=== PATIENT | male | born 1995 | race Caucasian/White ===

== ENCOUNTER 2019-05-28 17:47 | Emergency (ER) | payer BC, SELFPAY ==
[2019-05-28 18:20] VITALS: BP 115/63; PULSE 92; RESP 20; TEMP 37.8; O2SAT 98
--- NOTE | 2019-05-28 18:59 | ED.GENADULT ---
HPI - General Adult General Chief complaint: Upper Respiratory Infection Stated complaint: fischer throat fever cough Time Seen by Provider: 05/28/19 19:00 Source: patient and RN notes reviewed Mode of arrival: ambulatory Limitations: no limitations History of Present Illness HPI narrative: 24-year-old male presents with complaints of sore throat, fever, headache (not the worst of his life), body aches, and cough for the past 2 days. Ibuprofen (last @1800 today) with little relief. Tactile fevers, sweats, and chills. No drooling, neck or throat swelling. Pain is bilateral. Hurts to swallow. Exacerbation factors consist of eating and drinking. No rhinorrhea. Nasal congestion. No voice change. No nausea, vomiting, or abdominal pain. Tolerating liquids well. Denies chills, dyspnea, difficulty swallowing, jaw pain, dental pain, facial pain, foreign body sensation, and rash. Remains active. Some parts of this dictation were generated by voice recognition software and may contain typographical and/or grammatical inaccuracies. Related Data Allergies Allergy/AdvReac Type Severity Reaction Status Date / Time No Known Allergies Allergy Verified 05/28/19 19:08 Review of Systems Review of Systems: Narrative: CONSTITUTIONAL: Complains of tactile fever, chills, sweats. EYES: Denies visual changes, redness, discharge. ENT: Denies rhinorrhea, otalgia. Complains of sore throat, congestion. CARDIOVASCULAR: Denies chest pain, palpitations, edema. RESPIRATORY: Denies dyspnea, wheezing. Complains of cough. GASTROINTESTINAL: Denies abdominal pain, nausea, vomiting, diarrhea. GENITOURINARY: Denies dysuria, hematuria, abnormal discharge. SKIN: Denies rash or itching. MUSCULOSKELETAL: Denies acute back pain, joint pain. Complains of myalgia. NEUROLOGIC: Denies numbness or focal weakness. PSYCHIATRIC: Denies anxiety or depression. All systems reviewed & are unremarkable except as noted in HPI and below. [facility] Past Medical History Medical History (Updated 06/04/19 @ 15:05 by FILI Dominguez) No significant past medical history Social History Social History Smoking status: Never smoker Alcohol intake: current Comments At time of signature, agree with nurse past medical, surgical, social, and family history. There is no relevant family history pertinent to the presenting complaint. Exam Narrative: Exam Narrative: GENERAL: This is a well-nourished, well-developed patient, in no apparent distress. Speaks in full sentences without deficits and ambulates with steady gait without dyspnea. HEAD: normocephalic, atraumatic. EYES: PERRL. Sclera clear/white. Vision is grossly intact. EARS: External ears normal, auditory canals clear and without drainage, TMs normal without perforation. Hearing grossly intact. NOSE: External nose normal with no obvious nasal discharge, nares with mild redness and enlarge turbinates, no rhinorrhea. Mouth: moist mucous membranes. THROAT: Mucous membranes moist, posterior pharynx with moderate erythema, and moderate exudate to bilateral tonsil, +2 tonsils, no drainage, no concern for Peritonsillar abscess. No drooling, trismus, or neck swelling. NECK: Neck supple, non-tender without lymphadenopathy, masses or thyromegaly. CARDIOVASCULAR: Regular rate and rhythm without murmurs, gallops, or rubs. RESPIRATORY: Clear to auscultation. Breath sounds equal bilaterally. No wheezes, rales, or rhonchi. GASTROINTESTINAL: Abdomen soft, non-tender, nondistended. Bowel sounds are active. No hepato-splenomegaly, or palpable masses. No guarding. SKIN: warm, intact with no suspicious lesions or rash, good texture and turgor. NEURO: awake, alert, and oriented to person, place and time. There were no obvious focal neurologic abnormalities. EXTREMITIES: No clubbing, cyanosis, or edema. Niurka Coma Scale Eye Opening: Spontaneous 4 Niurka Coma Scale Motor: Obeys Comm
== END 2019-05-28 19:20 | disposition home or self-care (01) ==
PROVIDERS: Emergency Provider Nurse Practitioner Family; PCP Family Medicine
DX: J02.9 Acute pharyngitis, unspecified (principal); I10 Essential (primary) hypertension
CPT/HCPCS: 87081; 87804; 87880; 99213; G0463

== ENCOUNTER 2019-10-01 15:25 | Emergency (ER) | payer BC, SELFPAY ==
--- NOTE | ~2019-10-01 | XR_ITS ---
EXAMINATION: XR finger 4th LT min 2V EXAM DATE: 10/01/2019 16:29 INDICATION: Smashing injury, left 4th finger pain. Initial encounter. TECHNIQUE: Left 4th finger frontal, lateral and oblique projections obtained and reviewed. Compariso n is made to prior examination from 03/18/2019. FINDINGS: Previously seen acute left 4th tuft fracture has healed. There are no acute fractures or d islocations identified. There is no subcutaneous gas. The soft tissue is unremarkable. There are no radiopaque foreign bodies. IMPRESSION: No acute osseous findings. Reviewed, dictated and finalized at location A. IMPRESSION: No acute osseous findings.
[2019-10-01 16:12] VITALS: BP 155/81; PULSE 70; RESP 20; TEMP 37.1; O2SAT 98
--- NOTE | 2019-10-01 16:32 | ED.UPPEXIN ---
HPI - Extremity Injury (Upper) General Chief Complaint: Extremity Injury, Upper Stated Complaint: Finger injury Time Seen by Provider: 10/01/19 16:23 Source: patient and RN notes reviewed Mode of arrival: ambulatory Limitations: no limitations History of Present Illness HPI narrative: Patient presents today complaining of pain to the dorsum of his left hand. He struck it against the side of the box of an 18 hahn truck while loading the truck last night. Denies numbness or tingling in the hand or fingers. Currently rates his pain 6/10 and has been taking Advil with relief. complaint: injury to: left and hand Related Data Home Medications Medication Instructions Recorded Confirmed No Home Medications 10/01/19 10/01/19 Allergies Allergy/AdvReac Type Severity Reaction Status Date / Time No Known Allergies Allergy Verified 10/01/19 16:25 Review of Systems Review of Systems: Narrative: CONSTITUTIONAL: Denies body aches, fever, chills, or sweats. EYES: Denies visual changes, redness, or discharge. ENT: Denies rhinorrhea, congestion, sore throat, or otalgia. CARDIOVASCULAR: Denies chest pain, palpitations, or edema. RESPIRATORY: Denies cough or dyspnea. GASTROINTESTINAL: Denies abdominal pain, nausea, vomiting, or diarrhea. GENITOURINARY: Denies dysuria or hematuria. SKIN: Denies rash, itching, or wounds. MUSCULOSKELETAL: Denies back pain, or myalgia. + Left hand pain NEUROLOGIC: Denies headache, numbness, tingling, or weakness. PSYCH: Denies depression or anxiety. [facility] Past Medical History Medical History (Updated 10/01/19 @ 16:50 by Meli Bradshaw, [facility], ) No significant past medical history Social History Social History Smoking status: Never smoker Alcohol intake: current Comments At time of signature, I have reviewed and agree with nursing past medical, surgical, social and family history unless otherwise noted. Please see nursing chart for further information. There is no relevant family history pertinent to the presenting complaint Exam Narrative: Exam Narrative: GENERAL: Well-appearing, well-nourished, and in no acute distress. HEAD: Normocephalic, atraumatic. EYES: EOMI. No redness or drainage. Conjunctivae normal. ENT: Mucous membranes pink and moist. NECK: Normal AROM. CHEST: No respiratory distress. EXTREMITIES: Left hand: Tenderness and mild edema to the base of the fourth finger, dorsal aspect. Full range of motion of all fingers. Distal sensation intact. Capillary refill normal. Radial pulse normal. No deformity noted. SKIN: Warm, dry, no rash. Capillary refill normal. Normal skin turgor. NEURO: No focal deficits. Alert and oriented x3. Gait steady. PSYCH: Normal affect. No signs of depression or anxiety. Course Vital Signs Vital signs: Vital Signs Temperature 98.8 F 10/01/19 16:12 Pulse Rate 70 10/01/19 16:12 Respiratory Rate 20 10/01/19 16:12 Blood Pressure 155/81 H 10/01/19 16:12 Pulse Oximetry 98 10/01/19 16:12 Temperature 98.8 F 10/01/19 16:12 Pulse Rate 70 10/01/19 16:12 Respiratory Rate 20 10/01/19 16:12 Blood Pressure 155/81 H 10/01/19 16:12 Pulse Oximetry 98 10/01/19 16:12 Reviewed. Pt has been instructed to follow up with his PCP regarding his elevated blood pressure today. MDM - Extremity Injury (Upper) Differential Diagnosis Differential diagnosis: Likely fracture of hand and other (Hand contusion) Imaging Data Radiologist's impression: ITS Impressions Finger X-Ray 10/01/19 16:42 IMPRESSION: No acute osseous findings. Critical Care Time Critical Care Time Critical Care Time: No Discharge Plan Discharge Clinical Impression: Contusion of hand, left Qualifiers: Encounter type: initial encounter Qualified Code(s): S60.222A - Contusion of left hand, initial encounter Patient Disposition: Home, Self-Care Condition: S
== END 2019-10-01 16:54 | disposition home or self-care (01) ==
PROVIDERS: Emergency Provider Nurse Practitioner
DX: S60.222A Contusion of left hand, initial encounter (principal); W22.8XXA Striking against or struck by other objects, initial encounter; I10 Essential (primary) hypertension
CPT/HCPCS: 73140; 99213; G0463

== ENCOUNTER 2019-12-02 19:01 | Emergency (ER) | payer BC, SELFPAY ==
--- NOTE | 2019-12-02 19:04 | ED.EAR ---
HPI - Ear Problem General Chief complaint: Wound/Laceration Stated complaint: puss from ear Time Seen by Provider: 12/02/19 19:08 Source: patient and RN notes reviewed Mode of arrival: ambulatory Limitations: no limitations History of Present Illness HPI Narrative: 24 male presents with concern for a painful area behind his left ear. Reports a bump there that has been draining for several days. Reports the pain radiates slightly into his jaw. He denies drainage from the ear itself, ear pain. Denies fever, decreased hearing, malaise, chills. Reports he has an impacted wisdom tooth on that side of his mouth. MD Complaint: other (Boil behind the ear) Related Data Allergies Allergy/AdvReac Type Severity Reaction Status Date / Time No Known Allergies Allergy Verified 12/02/19 19:14 Review of Systems Review of Systems: Narrative: CONSTITUTIONAL: Denies malaise, chills, sweats, or fever. EYES: Denies visual changes, redness, or discharge. ENT: Denies rhinorrhea, congestion, sinus pain, otalgia and sore throat. CARDIOVASCULAR: Denies chest pain, palpitations, or edema. RESPIRATORY: Reports cough. Denies dyspnea. GASTROINTESTINAL: Denies abdominal pain, nausea, vomiting, diarrhea SKIN: Denies rash or itching. Reports a boil behind his left ear MUSCULOSKELETAL: Denies myalgia. NEUROLOGIC: Denies headache. All systems reviewed & are unremarkable except as noted in HPI and below PMFSH Comments At time of signature, agree with nursing past medical, surgical, social and family history. There is no relevant family history pertinent to the presenting complaint Exam Narrative: Exam Narrative: GENERAL: Well-appearing, well-nourished, and in no acute distress. HEAD: Normocephalic EYES: PERRLA, conjunctivae clear ENT: Nares clear, turbinates patent. Mucous membranes moist. TM pearly wheeler with dull light reflex bilaterally; no tragal tenderness. Oropharynx without edema or erythematous without lesions. no drooling, no hoarseness, no trismus, uvula midline. NECK: Supple. No lymphadenopathy CHEST: Clear to auscultation, breath sounds equal. No wheezing, rhonchi, rales, or stridor. No respiratory distress, speaks in full sentences. HEART: Regular rate and rhythm. No murmur heard. SKIN: Warm, dry, no rash. 2 cm erythematous papule noted behind the left ear that is tender to the touch, no drainage currently noted, no surrounding induration, erythema, edema NEURO: Alert and oriented x3. PSYCH: Normal mood and affect Course Course Emergency Course: Patient is aware of diagnosis, understands and agrees to treatment plan. Anticipatory guidance given. Patient agrees to follow-up as directed and is aware of reasons to seek care at the emergency department. Portions of this record may have been created with voice recognition software Vital Signs Vital signs: Vital Signs Temperature 98 F 12/02/19 19:06 Pulse Rate 83 12/02/19 19:06 Respiratory Rate 16 12/02/19 19:06 Blood Pressure 152/84 H 12/02/19 19:06 Pulse Oximetry 100 12/02/19 19:06 Temperature 98 F 12/02/19 19:06 Pulse Rate 83 12/02/19 19:06 Respiratory Rate 16 12/02/19 19:06 Blood Pressure 152/84 H 12/02/19 19:06 Pulse Oximetry 100 12/02/19 19:06 Reviewed. Medical Decision Making MDM Narrative Medical decision making narrative: Exam findings show no acute concerns or changes; patient is non-toxic appearing and is in no distress. Patient is appropriate for outpatient treatment and follow-up. Vital Signs Vital Signs: Vital Signs Temperature 98 F 12/02/19 19:06 Pulse Rate 83 12/02/19 19:06 Respiratory Rate 16 12/02/19 19:06 Blood Pressure 152/84 H 12/02/19 19:06 Pulse Oximetry 100 12/02/19 19:06 Temperature 98 F 12/02/19 19:06 Pulse Rate 83 12/02/19 19:06 Respiratory Rate 16 12/02/19 19:06 Blood Pressure 152/84 H 12/02/19 19:06 Pulse Oximetry 100 12/02/19 19:06 Critical Care Time Critical Care Time Critical Care
[2019-12-02 19:06] VITALS: BP 152/84; PULSE 83; RESP 16; TEMP 36.6; O2SAT 100
== END 2019-12-02 19:23 | disposition home or self-care (01) ==
PROVIDERS: Emergency Provider Nurse Practitioner; PCP Internal Medicine
DX: L02.02 Furuncle of face (principal)
CPT/HCPCS: 99213; G0463

== ENCOUNTER 2021-02-20 14:26 | Emergency (ER) | payer BC, SELFPAY ==
[2021-02-20 14:40] VITALS: BP 119/62; PULSE 67; RESP 14; TEMP 36.6; O2SAT 99
--- NOTE | 2021-02-20 14:40 | ED.GENADULT ---
HPI - General Adult General Chief complaint: Extremity Injury, Upper Stated complaint: bite on left palm swelling and numbe Time Seen by Provider: 02/20/21 14:56 Source: patient Mode of arrival: ambulatory Limitations: no limitations History of Present Illness HPI narrative: 25-year-old male patient presents to the [facility] with complaints of left swelling to the hand. Patient states he was at home working denies feeling any type of bite or sting but states all of a sudden his hand started swelling up. Patient states that has actually gotten worse and is starting to feel numb and tingly. Patient denies any chest pain, shortness of breath or trouble swallowing. Patient denies coming into contact with anything that he is allergic to that he is aware of. Related Data Allergies Allergy/AdvReac Type Severity Reaction Status Date / Time No Known Allergies Allergy Verified 02/20/21 14:41 Review of Systems Review of Systems: CONSTITUTIONAL: Denies fever, chills, or sweats. EYES: Denies visual changes, redness, or discharge. ENT: Denies rhinorrhea, congestion, sore throat, or otalgia. CARDIOVASCULAR: Denies chest pain, palpitations, or edema. RESPIRATORY: Denies cough or dyspnea. GASTROINTESTINAL: Denies abdominal pain, nausea, vomiting, or diarrhea. GENITOURINARY: Denies dysuria or hematuria. SKIN: Denies rash or itching. Positive swelling to left hand MUSCULOSKELETAL: Denies back pain, joint pain, or myalgia. NEUROLOGIC: Denies headache, numbness, or weakness. PSYCHIATRIC: Denies anxiety or depression. PMFSH Past Medical History Medical History No significant past medical history Family History Family History Other Family history of arthritis Hypertension Social History Social History Smoking status: Never smoker Alcohol intake: current Comments At the time of my signature I agree with nursing past medical history, surgical, social, and family history. There is no relevant family history pertinent to the presenting complaint. Exam Narrative: GENERAL: Well-appearing, well-nourished, and in no acute distress. HEAD: Normocephalic, atraumatic. EYES: PERRLA and EOMI. ENT: Nares clear, no rhinorrhea or epistaxis. Mucous membranes moist. NECK: Supple. No lymphadenopathy CHEST: Clear to auscultation. No respiratory distress. HEART: Regular rate and rhythm. No murmur heard. Normal peripheral pulses. ABDOMEN: Soft, nontender, nondistended, normal active bowel sounds. EXTREMITIES: Normal range of motion. No edema. Patient does have swelling noted to the left hand of the palm and fingertips. Patient has good palpable radial pulses. The hand does feel slightly cooler when compared to the right hand. There is several possible areas that could be bites or wounds the patient does not recall anything specific at the time and states he does use his hands a lot to work and does have cuts and scrapes here and there. No warmth noted. SKIN: Warm, dry, no rash. NEURO: No focal deficits. Alert and oriented x3. Course Reevaluation(s) Reevaluation #1: Reevaluated patient and patient states that his symptoms are not any worse but not necessarily better. Pulses still seem to be palpable radial. Discussed with patient that I would encourage him to put ice on the area and that the dexamethasone shot that we will give him should continue to work over the next couple of days to help decrease the inflammation and allergic reaction. I will also give him a daily antihistamine and take Benadryl as needed throughout the day. Patient verbalized understanding denies any other questions or concerns at this time Date: 02/20/21 Time: 15:56 Vital Signs Vital signs: Vital Signs Temperature 36.6 C 02/20/21 14:40 Pulse Rate 67 02/20/21 14:40 Respiratory Rate 14 02/20/21 14:40
[2021-02-20] MEDS: diphenhydrAMINE HCl CAP 25 MG CAPSULE 50 MG PO (15:07)
== END 2021-02-20 15:55 | disposition home or self-care (01) ==
PROVIDERS: Emergency Provider Nurse Practitioner Family; PCP Emergency Medicine
DX: T78.40XA Allergy, unspecified, initial encounter (principal)
CPT/HCPCS: 96372; 99213; A9270; G0463; J1100

== ENCOUNTER 2021-04-08 15:50 | Emergency (ER) | payer BC, SELFPAY ==
--- NOTE | 2021-04-08 15:54 | ED.EAR ---
HPI - Ear Problem General Chief complaint: Ear Stated complaint: left ear pain Time Seen by Provider: 04/08/21 15:55 Source: patient and RN notes reviewed History of Present Illness HPI Narrative: Patient is a 25-year-old male who presents the urgent care with complaints of swelling, redness and pain behind the left ear. Patient states he noticed approximately 2 days ago and he has been taking ibuprofen for the pain. Patient denies any fever, chills, nausea or vomiting. Patient has not been Covid vaccinated. No other acute complaints. No acute distress noted. Patient aware of the plan of care. Some parts of this dictation were generated by voice recognition software and may contain typographical and/or grammatical inaccuracies. Related Data Allergies Allergy/AdvReac Type Severity Reaction Status Date / Time No Known Allergies Allergy Verified 02/20/21 14:41 Review of Systems Review of Systems: CONSTITUTIONAL: Denies fever, chills, or sweats. EYES: Denies visual changes, redness, or discharge. ENT: Denies rhinorrhea, congestion, sore throat, or otalgia. CARDIOVASCULAR: Denies chest pain, palpitations, or edema. RESPIRATORY: Denies cough or dyspnea. GASTROINTESTINAL: Denies abdominal pain, nausea, vomiting, or diarrhea. GENITOURINARY: Denies dysuria or hematuria. SKIN: Reports of pain, redness and swelling behind the left ear MUSCULOSKELETAL: Denies back pain, joint pain, or myalgia. NEUROLOGIC: Denies headache, numbness, or weakness. All other systems reviewed are negative, except as documented in HPI. PMFSH Past Medical History Medical History No significant past medical history Family History Family History Other Family history of arthritis Hypertension Social History Social History Smoking status: Never smoker Alcohol intake: current Comments At the time of my signature, I reviewed and agree with the nursing past medical, surgical, social, and family history. There is no relevant family history pertinent to the patient complaint. Exam Narrative: GENERAL: This is a well-nourished, well-developed patient, in no apparent distress. HEAD: normocephalic, atraumatic. EYES: PERRL. Sclera clear/white. Vision is grossly intact. EARS: Right external ear normal (see skin), auditory canals clear and without drainage, TMs normal without perforation. Hearing grossly intact. NOSE: External nose normal with no obvious nasal discharge, nares without redness, no rhinorrhea. THROAT: Mucous membranes moist NECK: Neck supple CARDIOVASCULAR: Regular rate and rhythm without murmurs, gallops, or rubs. RESPIRATORY: Clear to auscultation. Breath sounds equal bilaterally. No wheezes, rales, or rhonchi. SKIN: 1 x 1 cm erythemic raised slightly fluctuant abscess behind the left ear with notable cronin. Warm, intact with no suspicious lesions or rash, good texture and turgor. NEURO: awake, alert, and oriented to person, place and time. There were no obvious focal neurologic abnormalities. EXTREMITIES: No clubbing, cyanosis, or edema. Course Course Level of Care: Express Care Visit Vital Signs Vital signs: Vital Signs Temperature 98.6 F 04/08/21 15:55 Pulse Rate 72 04/08/21 15:55 Respiratory Rate 16 04/08/21 15:55 Blood Pressure 142/68 H 04/08/21 15:55 Pulse Oximetry 99 04/08/21 15:55 Temperature 98.6 F 04/08/21 15:55 Pulse Rate 72 04/08/21 15:55 Respiratory Rate 16 04/08/21 15:55 Blood Pressure 142/68 H 04/08/21 15:55 Pulse Oximetry 99 04/08/21 15:55 Reviewed?-patient is informed that they may have pre-hypertension or hypertension based on a blood pressure reading in the department. I recommend the patient call the primary care provider listed on their discharge instructions or a physician of their choice this week to arrange fo
[2021-04-08 15:55] VITALS: BP 142/68; PULSE 72; RESP 16; TEMP 37; O2SAT 99
== END 2021-04-08 16:19 | disposition home or self-care (01) ==
PROVIDERS: Emergency Provider Nurse Practitioner Family; PCP Internal Medicine
DX: H61.002 Unspecified perichondritis of left external ear (principal)
CPT/HCPCS: 99212; G0463

== ENCOUNTER 2021-12-14 18:16 | Emergency (ER) | payer BC, SELFPAY ==
--- NOTE | ~2021-12-14 | XR_ITS ---
EXAM: XR knee RT min 4V DATE: 12/14/2021 19:02 HISTORY: KNI.PALPABLE KNOT AT BASE OF APEX X 3-4 WEEKS. . COMPARISON: None available. FINDINGS: Normal mineralization. No fracture or dislocation. No lytic or blastic lesion. Joint space s are maintained. No erosion or periosteal change. Soft tissues within normal limits. IMPRESSION: Normal right knee radiograph findings. Reviewed, dictated and finalized at location K.
[2021-12-14 18:26] VITALS: BP 129/69; PULSE 61; RESP 20; TEMP 36.9; O2SAT 100
[2021-12-14 18:34] VITALS: BP 129/69; PULSE 61; RESP 20; TEMP 36.9; O2SAT 100
--- NOTE | 2021-12-14 18:55 | ED.LOWEXIN ---
HPI - Extremity Injury (Lower) General Chief Complaint: Extremity Injury, Lower Stated Complaint: swelling and pain in right knee Source: patient Mode of arrival: ambulatory Limitations: no limitations History of Present Illness HPI Narrative: 26-year-old male presented for complaint of knee pain and swelling for about 4 weeks. He denies injury or trauma. States it started with a 'knot' at the front of the knee. States it has been the same size for about 2 weeks. He states today the pain worsened after sitting in traffic and using the brake frequently with the right leg. Pain worse when walking. Denies n/v/d/f/c. Not taking anything for pain. Related Data Allergies Allergy/AdvReac Type Severity Reaction Status Date / Time No Known Allergies Allergy Verified 12/14/21 18:29 Review of Systems Review of Systems: CONSTITUTIONAL: Denies body aches, fever, chills EYES: Denies visual changes CARDIOVASCULAR: Denies chest pain, palpitations, or edema. RESPIRATORY: Denies cough or dyspnea. SKIN: Reports red skin around knee MUSCULOSKELETAL: Reports right knee pain and swelling NEUROLOGIC: Denies headache, numbness, tingling, or weakness. All systems reviewed & are unremarkable except as noted in HPI and below PMFSH Past Medical History Medical History No significant past medical history Family History Family History Other Family history of arthritis Hypertension Social History Social History Smoking status: Never smoker Alcohol intake: current Substance use type: marijuana Comments At time of signature, I have reviewed and agree with nursing past medical, surgical, social and family history unless otherwise noted. Please see nursing chart for further information. There is no relevant family history pertinent to the presenting complaint Exam Narrative: GENERAL: Well-appearing, CHEST: Speaks in full sentences. No respiratory distress. HEART: Regular rate and rhythm. Normal and equal peripheral pulses. EXTREMITIES: RLE has normal strength and sensation, normal range of motion at the knee, subjective pain with internal rotation of the foot. Mild swelling and erythema of approximately 5 cm diameter surrounding subcutaneous nodule of approximately 1.5 cm diameter. Mild tenderness to palpation. No open wounds, fluctuance or active drainage. Alignment normal, pulse palpable and equal bilaterally, skin warm, dry, pink. Capillary refill less than 3 seconds. SKIN: Warm, dry, no rash. NEURO: Alert and oriented x3. PSYCH: Normal mood and affect Course Course Emergency Course: Patient is aware of diagnosis, understands and agrees to treatment plan. Anticipatory guidance given. Patient agrees to follow-up as directed and is aware of reasons to seek care at the emergency department. Portions of this record may have been created with voice recognition software Level of Care: Express Care Visit Vital Signs Vital signs: Vital Signs Temperature 98.5 F 12/14/21 18:26 Pulse Rate 61 12/14/21 18:26 Respiratory Rate 20 12/14/21 18:26 Blood Pressure 129/69 12/14/21 18:26 Pulse Oximetry 100 12/14/21 18:26 Oxygen Delivery Room Air 12/14/21 18:26 Temperature 98.5 F 12/14/21 18:34 Pulse Rate 61 12/14/21 18:34 Respiratory Rate 20 12/14/21 18:34 Blood Pressure 129/69 12/14/21 18:34 Pulse Oximetry 100 12/14/21 18:34 Oxygen Delivery Room Air 12/14/21 18:34 Reviewed Procedures Abscess I/D Right knee: Local Anesthetic: lidocaine 1% and with epi Amount of anesthesia used (mL): 2 Technique: incised with #11 blade Amount of fluid expressed (mL): 0 I&D Results: Nothing MDM - Extremity Injury (Lower) MDM Narrative Medical decision making narrative: Result of x-ray reviewed with
== END 2021-12-14 20:48 | disposition home or self-care (01) ==
PROVIDERS: Emergency Provider Nurse Practitioner Family; PCP Internal Medicine
DX: R22.41 Localized swelling, mass and lump, right lower limb (principal); F12.90 Cannabis use, unspecified, uncomplicated
CPT/HCPCS: 10140; 73564; 99213; G0463

== ENCOUNTER 2022-12-14 09:29 | Emergency (ER) | payer BC, SELFPAY ==
[2022-12-14 09:35] VITALS: BP 152/95; PULSE 86; RESP 18; TEMP 36.4; O2SAT 97
--- NOTE | 2022-12-14 09:37 | ED.GENADULT ---
HPI - General Adult General Chief complaint: Upper Respiratory Infection Stated complaint: Sore Throat Source: patient and RN notes reviewed History of Present Illness HPI narrative: 27 yo M presents to urgent care with complaints of a sore throat since Monday. Pt states his teeth have been hurting him and his left ear has been bothering him as well. Pt states he was around his brother all weekend and his brother tested + for strep throat yesterday. Denies any fevers, chills, vomiting, congestion, chest pain, or SOB. Related Data Allergies Allergy/AdvReac Type Severity Reaction Status Date / Time No Known Allergies Allergy Verified 12/14/22 09:47 Review of Systems Review of Systems: Pertinent positives and pertinent negatives per HPI. FORMERLY [facility] Past Medical History Medical History No significant past medical history Family History Family History Other Family history of arthritis Hypertension Social History Social History Smoking status: Never smoker Alcohol intake: current Substance use type: marijuana Comments At the time of my signature, I reviewed and agree with the nursing past medical, surgical, social, and family history. There is no relevant family history pertinent to the patient complaint. Exam Narrative: GENERAL: This is a well-nourished, well-developed patient, in no apparent distress. HEAD: normocephalic, atraumatic. EYES: Sclera clear/white. Vision is grossly intact. EARS: External ears normal, auditory canals clear and without drainage, TMs normal without perforation. Hearing grossly intact. NOSE: External nose normal with no obvious nasal discharge, nares without redness, no rhinorrhea. THROAT: Mucous membranes moist, posterior pharynx erythremic. NECK: Neck supple, non-tender without lymphadenopathy, masses or thyromegaly. CARDIOVASCULAR: Regular rate and rhythm without murmurs, gallops, or rubs. RESPIRATORY: Clear to auscultation. Breath sounds equal bilaterally. No wheezes, rales, or rhonchi. GASTROINTESTINAL: Abdomen soft, non-tender, nondistended. Bowel sounds are active. No hepato-splenomegaly, or palpable masses. No guarding. SKIN: warm, intact with no suspicious lesions or rash, good texture and turgor. NEURO: awake, alert, and oriented to person, place and time. There were no obvious focal neurologic abnormalities. EXTREMITIES: No clubbing, cyanosis, or edema. No joint tenderness, effusion, or edema noted. BACK: Nontender without deformity or crepitus. No flank tenderness. Course Course Level of Care: Express Care Visit Vital Signs Vital signs: Vital Signs Temperature 97.5 F L 12/14/22 09:35 Pulse Rate 86 12/14/22 09:35 Respiratory Rate 18 12/14/22 09:35 Blood Pressure 152/95 H 12/14/22 09:35 Pulse Oximetry 97 12/14/22 09:35 Oxygen Delivery Room Air 12/14/22 09:35 Temperature 97.5 F L 12/14/22 09:35 Pulse Rate 86 12/14/22 09:35 Respiratory Rate 18 12/14/22 09:35 Blood Pressure 152/95 H 12/14/22 09:35 Pulse Oximetry 97 12/14/22 09:35 Oxygen Delivery Room Air 12/14/22 09:35 Reviewed Medical Decision Making MDM Narrative Medical decision making narrative: After 24 hours on antibiotics throw tooth brush away and start using a new one. Increase your Vitamin C. Do not share drinks. Take Motrin alternating with Tylenol for pain and/or fever alternating every 4 hours. Increase fluids, avoid caffeine. Take a probiotic daily or eat a low sugar yogurt while taking the antibiotic. Follow up with Primary provider if not getting better this week Differential Diagnosis Differential Diagnosis: Strep throat, URI, viral pharyngitis Vital Signs Vital Signs: Vital Signs Temperature 97.5 F L 12/14/22 09:35 Pulse Rate 86 12/14/22 09:35 Respiratory Rate 18
== END 2022-12-14 10:00 | disposition home or self-care (01) ==
PROVIDERS: Emergency Provider Nurse Practitioner Family; PCP Internal Medicine
DX: J02.0 Streptococcal pharyngitis (principal)
CPT/HCPCS: 87880; 99213; G0463

== ENCOUNTER 2023-06-27 16:13 | Emergency (ER) | payer BC, SELFPAY ==
--- NOTE | ~2023-06-27 | XR_ITS ---
EXAMINATION: XR ankle LT min 3V DATE: 06/27/2023 17:57 INDICATION: Left ankle injury. TECHNIQUE: 4 views of left ankle were obtained. COMPARISON: None. FINDINGS: Bone alignment is normal. No fracture. Joint spaces are normal. There is ankle soft tissue swelling. IMPRESSION: 1. No fracture. Reviewed, dictated and finalized at location E. IMPRESSION: 1. No fracture.
[2023-06-27 16:23] VITALS: BP 176/88; PULSE 60; RESP 18; TEMP 36.7; O2SAT 100
--- NOTE | 2023-06-27 17:34 | ED.LOWEXIN ---
HPI - Extremity Injury (Lower) General Chief Complaint: Extremity Injury, Lower Stated Complaint: Left foot injury/infection Time Seen by Provider: 06/27/23 18:07 Source: patient, RN notes reviewed and old records reviewed Mode of arrival: ambulatory Limitations: no limitations History of Present Illness HPI Narrative: 28-year-old male who presents to [facility] with complaints of injury to his left ankle and anterior left leg which occurred a week ago when a electric moving pallet ran into his lower legs. Patient has superficial wound to his left anterior lower leg with some healing abrasions with some minimal redness to leg. Patient reports his initial bruising has resolved but mild swelling continues,voices concern for infection to leg. He reports that he has some left anterior ankle pain with some swelling present.Patient reports minimal ache to his right ankle with full mobility states no concern for his right ankle with no swelling noted. Patient has been taking Ibuprofen, use heat and ice, cleansed leg with alcohol and used band-aide over superficial wound area. Patient denies any fevers,chills or sweat. MD complaint: ankle injury (Left) Onset (ago): week(s) (1) Injury: Left: ankle Place: street/outdoors Severity scale (1-10): 6 Treatments prior to arrival: cold therapy, heart therapy, NSAIDS and other (Alcohol cleansing and band-aide) Related Data Allergies Allergy/AdvReac Type Severity Reaction Status Date / Time No Known Allergies Allergy Verified 06/27/23 17:28 Review of Systems Review of Systems: CONSTITUTIONAL: Denies fever, chills, or sweats. EYES: Denies visual changes, redness, or discharge. ENT: Denies rhinorrhea, congestion, sore throat, or otalgia. CARDIOVASCULAR: Denies chest pain, palpitations, or edema. RESPIRATORY: Denies cough or dyspnea. GASTROINTESTINAL: Denies abdominal pain, nausea, vomiting, or diarrhea. GENITOURINARY: Denies dysuria or hematuria. SKIN: Denies rash or itching.superficial small wound anterior left leg with some healing abrasions MUSCULOSKELETAL: Denies back pain,positive for anterior left ankle pain , or myalgia. NEUROLOGIC: Denies headache, numbness, or weakness. PSYCHIATRIC: Denies anxiety or depression. All systems reviewed & are unremarkable except as noted in HPI and below FORMERLY [facility] Past Medical History Medical History (Updated 06/29/23 @ 09:02 by Zaynab Reed NP) Compression fracture of L3 vertebra with routine healing Fracture of phalanx of left ring finger Hypertension Family History Family History Other Family history of arthritis Hypertension Social History Social History (Updated 06/29/23 @ 08:53 by Zyanab Reed NP) Smoking packs per day: 0.5 Smoking cigarettes per day: 10.0 Years smoked: 1 Smoking pack-years: 0.50 Smoking status: Former smoker Tobacco type: cigarettes Additional smoking assessment comments: quit long time ago Alcohol intake: current Substance use type: marijuana Gender identity (if verbalized by the patient): Male Comments At time of signature, agree with nursing past medical, surgical, social and family history. There is no relevant family history pertinent to the presenting complaint Exam Narrative: GENERAL: Well-appearing, well-nourished, and in no acute distress. HEAD: Normocephalic, atraumatic. EYES: PERRLA and EOMI. ENT: Nares clear, no rhinorrhea or epistaxis. Mucous membranes moist. NECK: Supple.no lymphadenopathy CHEST: Clear to auscultation. No respiratory distress.SAO2 100% on room air HEART: Regular rate and rhythm. No murmur heard. Normal peripheral pulses. ABDOMEN: Soft, nontender, nondistended, normal active bowel sounds. EXTREMITIES: Normal range of motion. No edema Exception noted to left anterior ankle with some swelling noted and discomfort which does increase with ambulation. strong pedal pulse noted bilateral feet, no tingling or
== END 2023-06-27 19:45 | disposition home or self-care (01) ==
PROVIDERS: Emergency Provider Registered Nurse; PCP Internal Medicine
DX: S90.02XA Contusion of left ankle, initial encounter (principal); S80.812A Abrasion, left lower leg, initial encounter; W20.8XXA Other cause of strike by thrown, projected or falling object, initial encounter; I10 Essential (primary) hypertension; Z87.891 Personal history of nicotine dependence; F12.90 Cannabis use, unspecified, uncomplicated
CPT/HCPCS: 73610; 99213; G0463

== ENCOUNTER 2023-08-14 12:09 | Emergency (ER) | payer BC, SELFPAY ==
[2023-08-14 12:20] VITALS: BP 144/96; PULSE 77; RESP 20; TEMP 36.7; O2SAT 98
--- NOTE | 2023-08-14 12:44 | ED.URI ---
HPI - URI/Sore Throat General Chief Complaint: Skin/Abscess/Foreign Body Stated Complaint: throat Time Seen by Provider: 08/14/23 12:45 Source: patient, RN notes reviewed and old records reviewed Mode of arrival: ambulatory Limitations: no limitations History of Present Illness HPI Narrative: 28-year-old male presents to the [facility] with complaints of a sore throat for 2 days. No treatment prior to arrival Patient is a smoker Patient also has a wound to the left anterior lower leg that is unhealed for 2 months. Was seen 06/27/23 and prescribed antibiotics Treatments prior to arrival: none Related Data Allergies Allergy/AdvReac Type Severity Reaction Status Date / Time No Known Allergies Allergy Verified 08/14/23 12:37 Review of Systems Review of Systems: All systems reviewed & are unremarkable except as noted in HPI and below Constitutional: Constitutional: Reports no additional constitutional complaints Eyes: Eyes: Reports no additional eye complaints ENT: Reports as per HPI and Reports sore throat Cardiovascular: Cardiovascular: Reports no additional cardiovascular complaints, Denies chest pain and Denies dyspnea Respiratory: Respiratory: Reports no additional respiratory complaints, Denies chest congestion, Denies cough and Denies dyspnea Gastrointestinal: Gastrointestinal: Reports no additional gastrointestinal complaints, Denies abdominal pain, Denies nausea and Denies vomiting Musculoskeletal: Musculoskeletal: Reports no additional musculoskeletal complaints Integumentary/Breasts: Skin/Breast: Reports as per HPI Neurologic: Reports system reviewed and no additional complaints, except as documented Psychiatric: Psychiatric: Reports no additional psychiatric complaints Allergic/Immunologic: Allergic/Immunologic: Reports no additional allergic/immunologic complaints PMFSH Past Medical History Medical History Compression fracture of L3 vertebra with routine healing Fracture of phalanx of left ring finger Hypertension Family History Family History Other Family history of arthritis Hypertension Social History Social History (Updated 08/15/23 @ 11:19 by Anjana Mccarty APRN) Smoking packs per day: 0.5 Smoking cigarettes per day: 10.0 Years smoked: 1 Smoking pack-years: 0.50 Smoking status: Current every day smoker Tobacco type: cigarettes Additional smoking assessment comments: quit long time ago Alcohol intake: current Substance use type: marijuana Gender identity (if verbalized by the patient): Male Comments At the time of my signature, I reviewed and agree with the nursing past medical, surgical, social, and family history. There is no relevant family history pertinent to the patient complaint. Exam Const: General: cooperative, healthy appearing, comfortable, no acute distress, well developed, alert and well nourished Nutritional Appearance: well nourished Orientation/consciousness: patient oriented x3 Limitations: no limitations HENMT: Head: normal to inspection Ears: hearing grossly normal bilaterally and external ears normal Face/Nose/Sinus: Normal external nose present, Normal nares present, Normal nasal mucous membranes and turbinates present, normal facial exam and face symmetric Face and sinus: normal facial exam and face symmetric Throat: tonsils normal, uvula midline, posterior oropharynx abnormal erythema and uvular edema Other: Patient maintaining own secretions. No trouble swallowing. No significant swelling except for minor swelling of the uvula. Consistent with uvulitis Eyes: General: appearance normal, both eyes and all related structures Alignment and Position: alignment normal Periorbital: periorbital findings normal Pupils: Equal, round and reactive pupils present EOM: EOMs intact bilaterally Neck: Neck: normal visual inspection,
== END 2023-08-14 13:15 | disposition home or self-care (01) ==
PROVIDERS: Emergency Provider Nurse Practitioner; PCP Internal Medicine
DX: K12.2 Cellulitis and abscess of mouth (principal); S81.801D Unspecified open wound, right lower leg, subsequent encounter; X58.XXXD Exposure to other specified factors, subsequent encounter; F17.210 Nicotine dependence, cigarettes, uncomplicated; F12.90 Cannabis use, unspecified, uncomplicated; I10 Essential (primary) hypertension
CPT/HCPCS: 87081; 87880; 99213; G0463